=== PATIENT | male | born 1960 | race Caucasian/White ===

== ENCOUNTER 2022-07-25 13:56 | Observation (INO) | payer OTHER, SELFPAY ==
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
[2022-07-25 14:04] VITALS: BP 124/76; PULSE 86; O2SAT 98
[2022-07-25 14:08] VITALS: BMI 30.7
--- NOTE | 2022-07-25 14:09 | ECG_ITS ---
Test Reason : ?SYNCOPE Blood Pressure : / mmHG Vent. Rate : 072 BPM Atrial Rate : 072 BPM P-R Int : 176 ms QRS Dur : 086 ms QT Int : 370 ms P-R-T Axes : 055 069 044 degrees QTc Int : 405 ms Normal sinus rhythm Septal infarct , age undetermined Abnormal ECG When compared with ECG of 01-AUG-2016 20:42, Septal infarct is now Present Referred By: Julius Starks Electronically Signed By:LULU NUNEZ
[2022-07-25 14:11] VITALS: BP 136/73; PULSE 73; RESP 18; TEMP 36.7; O2SAT 97
[2022-07-25 14:38] LABS: MANUAL DIFF FLAG NO
[2022-07-25 14:39] LABS: Basophils Percent Auto 0.4 % (0-2); Eosinophils Absolute Auto 0.2 X10*3/uL (0.0-0.4); Hematocrit 42.8 % (42.0-52.0); Imm Gran Abs Auto 0.01 X10*3/uL (0.00-0.03); Imm Gran Pct Auto 0.1 % (0.0-0.4); Lymphocytes Absolute Auto 1.7 X10*3/uL (1.2-4.9); Lymphocytes Percent Auto 22.3 % (20-40); Mean Corpuscular Hemoglobin 32.1 pg (27.0-33.0); Mean Corpuscular Volume 91.5 fL (80.0-98.0); Mean Platelet Volume 9.4 fL (9.4-12.4); Monocytes Absolute Auto 0.5 X10*3/uL (0.1-1.2); Monocytes Percent Auto 6.9 % (2-11); Neutrophils Absolute Auto 5.2 x10*3/uL (2.0-8.3); Neutrophils Percent Auto 68.3 % (45-73); Platelet Count 278 X10*3/uL (160-400); Red Blood Count 4.68 X10*6/uL (4.60-5.80); Red Cell Distribution Width 13.6 % (11.0-16.0); White Blood Count 7.5 X10*3/uL (4.8-10.8)
--- OUTSIDE RECORDS SUMMARY | 2022-07-25 14:46 | XMS_ITS | Continuity of Care Document ---
:1960 Author Organization [facility] [place] Adult Address [address] [place] [address]- Care Team Providers Name Role Phone Sadnra BOWMAN, Johnnie Dunn Primary Care Physician [place] [facility] [place]21 [facility] [place] Adult [address] [place] [address]- Allergies, Adverse Reactions, Alerts Substance Reaction Severity Status omeprazole1 Active penicillins Active 1Unable to urinate Immunizations Given and Recorded Vaccine Date Status Refusal Reason Influenza Virus Vaccine (oldterm) 10/16/18 Recorded Problem List Condition Effective Dates Status Health Status Informant History of alcohol abuse(Confirmed) Active Encounter for preventive health Active examination(Confirmed) Pyuria(Confirmed) Active Shoulder joint pain(Confirmed) Active Skin cancer(Confirmed) Active Tubular adenoma of colon(Confirmed) Active Vertigo(Confirmed) Active Social History Social History Type Response Smoking Status Former smoker; Tobacco user in household: No; Other: quit 2 years ago; entered on: 01/13/18 Sex
--- OUTSIDE RECORDS SUMMARY | 2022-07-25 14:46 | XMS_ITS | Continuity of Care Document ---
:1960 Author Organization [facility] [place] Adult Address [address] [place] [address]- Care Team Providers Name Role Phone Johnnie Flores MD Primary Care Physician Encounter [facility] [place] Date(s): 01/22/20 - 01/29/20 [facility] [place] Adult [address] [place] [address]- [place] States Attending Physician: Johnnie Flores MD Allergies, Adverse Reactions, Alerts Substance Reaction Severity Status omeprazole1 Active penicillins Active 1Unable to urinate Immunizations Given and Recorded Vaccine Date Status Refusal Reason Influenza Virus Vaccine (oldterm) 10/16/18 Recorded Medications NuLYTELY with Flavor Packs oral powder for reconstitution 240 mL, By Mouth, Every 10 minutes, # 1 each, 0 Refills, Maintenance, 01/25/20 7:36:00 EDT, REC Powder, [id number], test date 05/22/20, 240 mL By Mouth Every 10 minutes, 175, cm, 01/22/20 8:53:00 EDT, Height Start Date: 01/25/20 Status: Ordered Problem List Condition Effective Dates Status Health Status Informant History of alcohol abuse(Confirmed) Active Encounter for preventive health Active examination(Confirmed) Pyuria(Confirmed) Active Shoulder joint pain(Confirmed) Active Skin cancer(Confirmed) Active Tubular adenoma of colon(Confirmed) Active Vertigo(Confirmed) Active Vital Signs Most recent to oldest [Reference Range]: 1 Height 175 cm (01/22/20 8:53 AM) Weight 80.6 kg (01/22/20 8:53 AM) Oxygen Saturation [94-100 %] 99 % (01/22/20 8:53 AM) Pulse Rate [55-90 bpm] 90 bpm (01/22/20 8:53 AM) Body Mass Index [18.5-24.99] 26.32 *H* (01/22/20 8:53 AM) Blood Pressure [90-138/55-84 mm Hg] 130/80 mm Hg (01/22/20 8:53 AM) Temperature [96.8-100.4 DegF] 98.1 DegF (01/22/20 8:53 AM) Mode of Delivery (Oxygen) Room air (01/22/20 8:53 AM) Blood pressure sites Arm, right (01/22/20 8:53 AM) Temperature Route Oral (01/22/20 8:53 AM) Weight Obtained Via Standing scale (01/22/20 8:53 AM) Social History Social History Type Response Smoking Status Former smoker; Tobacco user in household: No; Other: quit 2 years ago; entered on: 01/13/18 Sex
--- OUTSIDE RECORDS SUMMARY | 2022-07-25 14:46 | XMS_ITS | Continuity of Care Document ---
:1960 Author Organization [facility] Adult Address [address] [place] [address]- Care Team Providers Name Role Phone Sandra BOWMAN, Johnnie Dunn Primary Care Physician Encounter [facility] [place] Date(s): 01/23/21 - 02/22/21 [facility] Adult [address] [place] [address]- Attending Physician: Chan Gallagher Admitting Physician: Chan Gallagher Referring Physician: trChan Allergies, Adverse Reactions, Alerts Substance Reaction Severity [...]
--- OUTSIDE RECORDS SUMMARY | 2022-07-25 14:46 | XMS_ITS | Continuity of Care Document ---
:1960 Author Organization [facility] Adult Address [address] [place] [address]- Care Team Providers Name Role Phone Sandra BOWMAN, Johnnie Dunn Primary Care Physician [place] [facility] [place] 10/03/21 [facility] Adult [address] [place] [address]- Attending Physician: Chan Gallagher Admitting Physician: Chan [...]
--- OUTSIDE RECORDS SUMMARY | 2022-07-25 14:46 | XMS_ITS | Continuity of Care Document ---
:1960 Author Organization [facility] Address [address] [place] [address]- Care Team Providers Name Role Phone Johnnie Flores MD Primary Care Physician Encounter [id number] Date(s): 05/21/20 - 05/21/[address] [address]- [facility] Discharge Disposition: A-D/C Home Attending Physician: Wilber Leon MD Admitting Physician: Wilber Leon MD Referring Physician: Wilber Leon MD Allergies, Adverse Reactions, Alerts Substance Reaction Severity Status omeprazole1 Active penicillins Active 1Unable to urinate Immunizations Given and Recorded Vaccine Date Status Refusal Reason Influenza Virus Vaccine (oldterm) 10/16/18 Recorded Medications No Known Medications Problem List Condition Effective Dates Status Health Status Informant History of alcohol abuse(Confirmed) Active Encounter for preventive health Active examination(Confirmed) Pyuria(Confirmed) Active Shoulder joint pain(Confirmed) Active Skin cancer(Confirmed) Active Tubular adenoma of colon(Confirmed) Active Vertigo(Confirmed) Active Vital Signs Most recent to oldest 1 2 3 [Reference Range]: Height 173 cm (05/21/20 8:55 AM) Oxygen Saturation [94-100 %] 99 % 97 % 96 % (05/21/20 10:42 AM) (05/21/20 10:26 AM) (05/21/20 1 0:21 AM) Pulse Rate [55-90 bpm] 72 bpm (05/21/20 8:55 AM) Blood Pressure [90-138/55-84 121/62 mm Hg 126/77 mm Hg 161 /126 mm Hg mm Hg] (05/21/20 10:42 AM) (05/21/20 10:26 AM) *H* (05/21/20 10:21 A M) Respiratory Rate [16-30 23 br/min 15 br/min 13 br/mi n br/min] (05/21/20 10:42 AM) *L* *L* (05/21/20 10:26 AM) (05/21/20 10:2 1 AM) Temperature [96.8-100.4 97.5 DegF 97.6 DegF 97.9 Deg F DegF] (05/21/20 10:42 AM) (05/21/20 10:21 AM) (05/21/20 8 :55 AM) Mode of Delivery (Oxygen) Room air Room air Room a ir (05/21/20 10:42 AM) (05/21/20 10:39 AM) (05/21/20 1 0:26 AM) Blood pressure sites Arm, left (05/21/20 8:55 AM) Temperature Route Temporal Temporal Temporal (05/21/20 10:42 AM) (05/21/20 10:21 AM) (05/21/20 8 :55 AM) Dry Weight 75 kg (05/21/20 8:55 AM) Social History Social History Type Response Smoking Status Former smoker; Tobacco user in household: No; Other: quit 2 years ago; entered on: 01/13/18 Sex
--- OUTSIDE RECORDS SUMMARY | 2022-07-25 14:46 | XMS_ITS | Continuity of Care Document ---
:1960 Author Organization [facility] Adult Address [address] [place] [address]- Care Team Providers Name Role Phone Sandra BOWMAN, Johnnie Dunn Primary Care Physician Encounter [facility] [place] Date(s): 08/31/21 - 09/30/21 [facility] Adult [address] [place] [address]- Allergies, Adverse Reactions, Alerts Substance Reaction Severity [...]
--- OUTSIDE RECORDS SUMMARY | 2022-07-25 14:46 | XMS_ITS | Continuity of Care Document ---
:1960 Author Organization [facility] Adult Address [address] [place] [address]- Care Team Providers Name Role Phone Sandra BOWMAN, Johnnie Dunn Primary Care Physician [place] [facility] [place] Date(s): 11/17/21 - 12/17/21 [facility] Adult [address] [place] [address]- Allergies, Adverse Reactions, Alerts Substance Reaction Severity [...]
--- OUTSIDE RECORDS SUMMARY | 2022-07-25 14:46 | XMS_ITS | Continuity of Care Document ---
:1960 Author Organization [facility] Adult Address [address] [place] [address]- Care Team Providers Name Role Phone Johnnie Flores MD Primary Care Physician En[place] [facility] [place] Date(s): 08/31/21 - 10/03/21 [facility] Adult [address] [place] [address]- Attending Physician: Johnnie Flores MD Allergies, Adverse [...]
--- OUTSIDE RECORDS SUMMARY | 2022-07-25 14:46 | XMS_ITS | Continuity of Care Document ---
:1960 Author Organization [facility] Adult Address [address] [place] [address]- Care Team Providers Name Role Phone Johnnie Flores MD Primary Care Physician Encounter [facility] [place] Date(s): 01/23/21 - 01/30/21 [facility] Adult [address] [place] [address]- Attending Physician: Johnnie Flores MD Allergies, Adverse [...] recent to oldest [Reference Range]: 1 Height 173 cm (01/23/21 9:00 AM) Weight 76 kg (01/23/21 9:00 AM) Oxygen Saturation [94-100 %] 98 % (01/23/21 9:00 AM) Pulse Rate [55-90 bpm] 89 bpm (01/23/21 9:00 AM) Body Mass Index [18.5-24.99] 25.39 *H* (01/23/21 9:00 AM) Blood Pressure [90-138/55-84 mm Hg] 122/80 mm Hg (01/23/21 9:00 AM) Temperature [96.8-100.4 DegF] 98.1 DegF (01/23/21 9:00 AM) Blood pressure sites Arm, right (01/23/21 9:00 AM) Temperature Route Oral (01/23/21 9:00 AM) Weight Obtained Via Standing scale (01/23/21 9:00 AM) Social History Social History Type Response Smoking Status Former smoker; Tobacco user in household: No; Other: quit 2 years ago; entered on: 01/13/18 Sex
--- OUTSIDE RECORDS SUMMARY | 2022-07-25 14:46 | XMS_ITS | Continuity of Care Document ---
:1960 Author Organization [facility] Adult Address [address] [place] [address]- Care Team Providers Name Role Phone Johnnie Flores MD Primary Care Physician Encounter [facility] [place] Date(s): 07/01/22 - 07/08/22 [facility] Adult [address] [place] [address]- Encounter Diagnosis Carpal tunnel syndrome (Discharge Diagnosis) - 07/01/22 Attending Physician: Carmela Herzog Referring Physician: Johnnie Flores MD Allergies, Adverse Reactions, [...] Tubular adenoma of colon(Confirmed) Active Vertigo(Confirmed) Active Diagnosis Diagnosis Type Effective Dates Health Status Clinical In formant Service Carpal tunnel Discharge 07/01/22 syndrome Diagnosis Vital Signs Most recent to oldest [Reference Range]: 1 Height 173 cm (07/01/22 11:19 AM) Weight 74.5 kg (07/01/22 11:19 AM) Oxygen Saturation [94-100 %] 99 % (07/01/22 11:19 AM) Pulse Rate [55-90 bpm] 74 bpm (07/01/22 11:19 AM) Body Mass Index [18.5-24.99] 24.89 (07/01/22 11:19 AM) Blood Pressure [90-138/55-84 mm Hg] 133/83 mm Hg (07/01/22 11:19 AM) Blood pressure sites Arm, right (07/01/22 11:19 AM) Social History Social History Type Response Smoking Status Former smoker; Tobacco user in household: No; Other: quit 2 years ago; entered on: 01/13/18 Sex Care Team PersonnelName: Sandra BOWMAN, Johnnie Dunn Address: [address] [place] [id number]-
[2022-07-25 14:56] LABS: Alanine Aminotransferase 21 U/L (0-40); Albumin Level 4.3 g/dL (3.5-5.0); Alkaline Phosphatase 95 U/L (39-117); Anion Gap 16 (12-20); Aspartate Amino Transferase 25 U/L (5-37); Bilirubin Direct 0.3 mg/dL (0.0-0.5); Bilirubin Total 0.6 mg/dL (0.0-1.0); Blood Urea Nitrogen 22 mg/dL (9-16); Calcium 9.7 mg/dL (8.4-10.2); Carbon Dioxide 27 mmol/L (22-29); Chloride 102 mmol/L (96-108); Creatinine Clr Calc Pharmacy 73.2; Estimated Glomerular Filt Rate > 60; Glucose Random 91 mg/dL (60-115); Potassium 4.2 mmol/L (3.3-5.1); Sodium 141 mmol/L (135-145)
[2022-07-25 14:59] LABS: Troponin-I High Sensitivity 3.5 ng/L (<3.5-35.0)
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
[2022-07-25 16:27] VITALS: PULSE 77; RESP 18; O2SAT 100
--- NOTE | 2022-07-25 16:33 | PHA.MEDREC ---
Pharmacy Consult ? Medication Reconciliation Pharmacy has completed the medication reconciliation. Patient reports using naproxen for sleep.
[2022-07-25 17:12] LABS: D Dimer High Sensitivity 267 NG/ML
[2022-07-25 17:32] LABS: Troponin-I High Sensitivity 4.7 ng/L (<3.5-35.0)
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
--- NOTE | 2022-07-25 18:24 | PC.NURSE ---
report given to alejo in [facility]
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
[2022-07-25 19:47] VITALS: BP 150/93; PULSE 73; RESP 15; TEMP 37.1; O2SAT 98
[2022-07-26] VITALS (9 sets, daily range): BP systolic 111–149; BP diastolic 67–92; PULSE 61–91; RESP 16–18; TEMP 36.3–36.8; O2SAT 91–100
--- NOTE | 2022-07-26 | CA_ITS ---
Acquisition Time: 2022-07-27 08:23:15 Total Exercise Time: 00:09:41 Test Indications: SYNCOPE Medications: SEE CHART Protocol: YUMIKO Max HR: 137 BPM 86% of Pred: 159 BPM Max BP: 152/082 mmHG Max Work Load: 11.2 METS Exercise stress test with exercise 9 min 41 sec of Yumiko protocol, achieving 87% MPHR, without anginal symptoms, with isolated PVCs, with normotensvie response to exercise, without EKG changes meeting criteria for ischemia. Test reviewed with Dr Olosn. Referred By: Charli Olson Overread By: REMBERTO REED
[2022-07-26] MEDS: 0.9 % Sodium Chloride Flush 3 ML SYRINGE IVFLUSH ×3 (02:31→16:57)
[2022-07-26 06:47] LABS: Hematocrit 44.7 % (42.0-52.0); Hemoglobin 15.4 g/dl (14.0-18.0); Mean Corpuscular HGB Conc 34.5 g/dl (31.0-36.0); Mean Corpuscular Hemoglobin 31.6 pg (27.0-33.0); Mean Corpuscular Volume 91.6 fL (80.0-98.0); Mean Platelet Volume 9.7 fL (9.4-12.4); Platelet Count 281 X10*3/uL (160-400); Red Blood Count 4.88 X10*6/uL (4.60-5.80); Red Cell Distribution Width 13.5 % (11.0-16.0); White Blood Count 9.9 X10*3/uL (4.8-10.8)
--- NOTE | 2022-07-26 07:00 | CA_ITS ---
Transthoracic Echocardiogram Patient (Last, First, Middle): Spencer Bernal V Gender: Male Date of : 1960 Age: 61 Procedure Date: 07/26/2022 Procedure Type: Transthoracic Echocardiogram Location: ER Height: 167.64 cm Weight: 86.18 kg BSA: 1.96 m2 Heart Rate: 67 bpm BP: 115 / 74 mmHg Greenkeeper: Referring MD: Cecilio Ernandez MD Electric Sign Wirer: Charli Olson MD Symptoms: syncope Study Quality: Good ECG Rhythm: Sinus Conclusions: - 1. Normal LV systolic function with grade 1 diastolic dysfunction 2. Normal cardiac valvular Doppler 3. Normal RV systolic pressure 4. No pericardial effusion Findings Left Ventricle Normal left ventricular size, thickness, and systolic function. The visually estimated ejection fraction is between 60-65%. Spectral Doppler is indicative of an impaired relaxation filling pattern. E/E prime ratio is <8, consistent with normal filling pressures. Right Ventricle Normal right ventricular cavity size and systolic function. Atria Both atria are normal in size. There is lipomatous hypertrophy of the interatrial septum. There is no evidence of interatrial shunt. Aortic Valve Normal aortic valve structure and function. There is no aortic valve stenosis. There is no aortic valve regurgitation. Mitral Valve Normal mitral valve structure and function. There is trace mitral valve regurgitation. There is no mitral valve stenosis. Pulmonic Valve The pulmonic valve was not well visualized. Tricuspid Valve Likely normal tricuspid valve structure and function. There is trace tricuspid valve regurgitation. The right ventricular systolic pressure is normal. The right ventricular systolic pressure is 14 mmHg. Normal right atrial pressure. There is no evidence of pulmonary hypertension. Great Vessels All visible segments of the aorta are normal in size. The pulmonary artery was not well visualized. Venous The inferior vena cava is normal in size and collapses greater than 50% with inspiration. Pericardium/Pleural There is no evidence of pericardial effusion. Prior Study Comparison No prior study available for comparison. Measurements 2D Linear Measurements IVSd: 1.30 0.6-0.9/0.6-1.0 cm LVIDd: 4.39 3.9-5.3/4.2-5.9 cm LVIDd Index: 2.24 2.4-3.2/2.2-3.1 cm/m2 LVIDs: 2.66 2.0-3.6 cm LVPWd: 1.30 0.7-1.1 cm Ao Root: 3.60 2.1-3.5 cm LA Diam: 3.80 2.7-3.8/3.0-4.0 cm LAIDs Index: 1.94 1.5-2.3 cm/m2 LV Mass: 267.20 67-162/88-224 g LV Mass Index: 136.33 43-95/49-115 g/m2 LVOT Diam: 2.30 3.0+(-)1.3 cm Mitral Valve MV Pk E: 0.58 MV PK A: 0.74 MV Decel Time: 209.00 E/A: 0.80 E'Lateral: 5.55 E'Medial: 6.74 E/E' Med: 8.60 E/E' Lat: 10.50 PHT: 61.00 MVA PHT: 3.61 Decel [place]: 2.78 Aortic Valve AoV Pk Samson: 1.38 AoV Mn Samson: 0.96 AoV VTI: 0.31 AoV Pk Grad: 8.00 Aov Mn Grad: 4.00 YESENIA Cont.VTI: 2.97 LVOT LVOT Pk Samson: 1.10 LVOT Mn Samson: 0.65 LVOT VTI: 0.22 LVOT Pk Grad: 5.00 LVOT Mn Grad: 2.00 LVOT Diam: 2.30 LVOT Area: 4.15 Diastolic Function MV Pk E: 0.58 MV Pk A: 0.74 E/A: 0.80 E'Medial: 6.74 E/E' Med: 8.60 E' Laterial: 5.55 E/E' Lat: 10.50 Right Ventricle TAPSE (mm): 28.00 TVS' Samson: 12.00 Tricuspid Valve TR Pk Samson: 1.66 TR Pk Grad: 11.00 RA Press: 3.00 RVSP: 14.00 Great Vessels Aorta Ao Root-2D: 3.60 2.0-3.7 cm Ao Asc: 3.10 2.1-3.4 cm Pulmonary Valve PV Pk Samson: 1.07 Peak PV Grad: 5.00 Updated in Other Vendor System with Status of Final Charli Olson MD electronically signed on 07/26/2022 12:44:22 PM with status of Final
[2022-07-26 07:21] LABS: Anion Gap 14 (12-20); Blood Urea Nitrogen 20 mg/dL (9-16); Calcium 9.6 mg/dL (8.4-10.2); Carbon Dioxide 24 mmol/L (22-29); Chloride 107 mmol/L (96-108); Creatinine Clr Calc Pharmacy 85.8; Estimated Glomerular Filt Rate > 60; Glucose Fasting 117 mg/dL (60-99); Magnesium 1.9 mg/dL (1.6-2.6); Potassium 4.5 mmol/L (3.3-5.1); Sodium 140 mmol/L (135-145)
[2022-07-26] MEDS: Enoxaparin Sodium 40 MG/0.4 ML SYRINGE SUBCUT (08:29)
[2022-07-26 08:34] LABS: Thyroid Stimulating Hormone 1.12 uIU/mL (0.32-4.0)
--- NOTE | 2022-07-26 10:47 | HO.PM.IMPN ---
Subjective Subjective Date of Service: 07/26/22 Interval History: cc: syncope interval history:no further episodes Cardiovascular Cardiovascular: Reports no additional cardiovascular complaints Respiratory Respiratory: Reports no additional respiratory complaints Physical Exam Vital Signs: Vital Signs: Last Vital Signs Temp 97.6 F 07/26/22 08:18 Pulse 76 07/26/22 08:18 Resp 18 07/26/22 08:18 BP 142/86 H 07/26/22 08:18 Pulse Ox 97 07/26/22 08:18 O2 Del Method 07/26/22 08:18 BMI result Body Mass Index 30.7 General: AO X 3, no acute distress Resp: CTA bilateral, no accessory muscles used CVS: S1,S2,RRR GI: soft, non tender, non distended Neuro: motor grossly intact, alert Psych: appropriate affect, appropriate insight Objective Data Active Medications Enoxaparin Sodium (Enoxaparin Sodium 40 Mg/0.4 Ml Syringe) 40 mg SUBCUT DAILY [facility] Last Admin: 07/26/22 08:29 Dose: 40 mg Documented By: CHUNG Pharmacy Consult (Consult Rx Perform Med Rec) 1 each MISCELLANE ONCE PRN PRN Reason: Consult order Sodium Chloride (0.9 % Sodium Chloride Flush 3 Ml Syringe) 3 ml IVFLUSH QSHIFT [facility] Last Admin: 07/26/22 08:28 Dose: 3 ml Documented By: CHUNG Labs CBC & Chem 7: 07/26/22 06:13 07/26/22 06:13 Labs: Laboratory Results - last 24 hr 07/25/22 07/25/22 07/25/22 14:34 14:34 14:34 MCV 91.5 MCH 32.1 MCHC 35.0 RDW 13.6 Plt Count 278 MPV 9.4 Immature Gran % (Auto) 0.1 Neut % (Auto) 68.3 Lymph % (Auto) 22.3 [place] % (Auto) 6.9 Eos % (Auto) 2.0 Baso % (Auto) 0.4 Lymph # (Auto) 1.7 [place] # (Auto) 0.5 Eos # (Auto) 0.2 Baso # (Auto) 0.0 Abs Immat Gran (auto) 0.01 Absolute Neuts (auto) 5.2 Absolute Nucleated RBC 0.000 Nucleated RBC % (auto) 0.0 D-Dimer High Sensitivty Anion Gap 16 Estim Creat Clear Calc 73.2 Estimated GFR > 60 Random Glucose 91 Fasting Glucose Calcium 9.7 Magnesium Total Bilirubin 0.6 Direct Bilirubin 0.3 AST 25 ALT 21 Alkaline Phosphatase 95 Troponin I High Sens 3.5 Total Protein 7.0 Albumin 4.3 TSH 07/25/22 07/25/22 07/26/22 16:49 16:49 06:13 MCV 91.6 MCH 31.6 MCHC 34.5 RDW 13.5 Plt Count 281 MPV 9.7 Immature Gran % (Auto) Neut % (Auto) Lymph % (Auto) [place] % (Auto) Eos % (Auto) Baso % (Auto) Lymph # (Auto) [place] # (Auto) Eos # (Auto) Baso # (Auto) Abs Immat Gran (auto) Absolute Neuts (auto) Absolute Nucleated RBC 0.000 Nucleated RBC % (auto) 0.0 D-Dimer High Sensitivty 267 Anion Gap Estim Creat Clear Calc Estimated GFR Random Glucose Fasting Glucose Calcium Magnesium Total Bilirubin Direct Bilirubin AST ALT Alkaline Phosphatase Troponin I High Sens 4.7 Total Protein Albumin TSH 07/26/22 06:13 MCV MCH MCHC RDW Plt Count MPV Immature Gran % (Auto) Neut % (Auto) Lymph % (Auto) [place] % (Auto) Eos % (Auto) Baso % (Auto) Lymph # (Auto) [place] # (Auto) Eos # (Auto) Baso # (Auto) Abs Immat Gran (auto) Absolute Neuts (auto) Absolute Nucleated RBC Nucleated RBC % (auto) D-Dimer High Sensitivty Anion Gap 14 Estim Creat Clear Calc 85.8 Estimated GFR > 60 Random Glucose Fasting Glucose 117 H Calcium 9.6 Magnesium 1.9 Total Bilirubin Direct Bilirubin AST ALT Alkaline Phosphatase Troponin I High Sens Total Protein Albumin TSH 1.12 Assessment and Plan (1) Syncope: Status: Acute Plan 61M presented with syncope syncope concerning for cardiac arrhythmia no events on telemetry so far, continue monitoring follow up echo, cardio appreciated, will need stress test, ILD will check orthostatics nicotine dependence smoking cessation dvt prophylaxis - lovenox reason for continued hospitalization:ongoing monitoring and stress test for high risk syncopal event Quality Stroke Does the patient have a stroke diagnosis?: No VTE Prior VTE?: No VTE Risk Level:: Medical - moderate - high VTE Device Contraindication: Treatment Not Indicated VTE Drug Contraindication: N/A - Med Ordered
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
--- NOTE | 2022-07-26 11:30 | PC.NURSE ---
pt seen by Dr. Ernandez and Dr. Patterson this morning. bedside cardiac echo done. pt to have cardiac ultrasound later this afternoon.
[2022-07-26] MEDS: Acetaminophen 325 MG TABLET 650 MG PO ×2 (12:13→21:59)
--- NOTE | 2022-07-26 12:18 | MHC.CM.PN ---
pt lives with s/o had noprevious servceis is indepedent vax x 2 dc plan home no services
[2022-07-26 15:47] LABS: COVID-19 Test Negative (Negative); IDNOW Serial# 16C4AD1C
--- NOTE | 2022-07-26 18:37 | PC.NURSE ---
Assumed patient care at 1500- Patient AAOx3, VSS. Denies pain, headache, blurry vision, chest pain, dizziness. Ambulating in unit independently. All needs met at this time.
--- NOTE | 2022-07-26 20:37 | PC.NURSE ---
Assumed care of patient at 1900, patient is alert and oriented x3. Offers no complaints at this time, vss. Report given to C RN. Awaiting transport at this time.
[2022-07-27 03:56] VITALS: BP 116/72; PULSE 61; RESP 14; TEMP 36.9; O2SAT 98
[2022-07-27 07:17] VITALS: BP 125/79; PULSE 73; RESP 20; TEMP 36.9; O2SAT 98
[2022-07-27 10:33] VITALS: BP 133/82; PULSE 72; RESP 16; O2SAT 96
--- NOTE | 2022-07-27 10:37 | PM.OP ---
Brief Operative Note Date of Service: 07/27/22 Pre-op diagnosis: Syncope Post-op diagnosis: same Procedure: Implantation of loop recorder Implants: After obtaining full informed consent patient was brought to the minor surgery suite. Patient was laid on the operating table in supine position. The precordial area was then prepped and draped in a sterile fashion. Patient was then given 2% lidocaine with epinephrine intradermally and subcutaneously in the 4th intercostal space. A [employer] implantable loop recorder with serial number [id number] was then implanted using Seldinger technique. Was then closed with a Steri-Strip. Sterile pressure dressing was then applied to the area. Measured R-wave at 0.58-0.65 mV Surgeon: Charli Olson MD Anesthesia: local Was an Block Sawyer used for this Procedure?: No Estimated blood loss (mL): 1 Pathology: none sent Condition: stable Disposition: floor
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
--- NOTE | 2022-07-27 12:18 | MHC.CM.PN ---
pt dcd home no skilled servceis ordered by
== END 2022-07-27 11:41 | disposition home or self-care (01) ==
LOC: HO.ED 14:57 → HO.EDOVER 16:31 → HO.IMC 07-26 18:53
PROVIDERS: Internal Medicine Cardiovascular Disease; Physician Assistant Medical; Admitting Provider Internal Medicine; Emergency Provider Emergency Medicine Emergency Medical Services; PCP Family Medicine; Visit Provider Internal Medicine
PROC: (CPT 33285; principal; 2022-07-27 10:00)
DX: R55 Syncope and collapse (principal); M54.2 Cervicalgia; R51.9 Headache, unspecified; F17.210 Nicotine dependence, cigarettes, uncomplicated; Z71.6 Tobacco abuse counseling; Z20.822 Contact with and (suspected) exposure to COVID-19; Z79.899 Other long term (current) drug therapy
CPT/HCPCS: 33285; 36415; 70450; 72125; 80048; 80076; 83735; 84443; 84484; 85025; 85027; 85379; 87635; 93005; 93017; 93306; 96372; 99219; 99285; C1764; J1650

== ENCOUNTER → 2022-11-12 08:25 | Outpatient (BNVA) | payer OTHER, SELFPAY | PROVIDERS: PCP Family Medicine; Visit Provider Surgery | DX: I45.5 Other specified heart block (principal); R55 Syncope and collapse; Z95.818 Presence of other cardiac implants and grafts; Z87.891 Personal history of nicotine dependence | CPT/HCPCS: 99202 ==

== ENCOUNTER 2022-11-18 17:20 | Inpatient (IN) | payer OTHER, SELFPAY ==
[2022-11-18] VITALS (8 sets, daily range): BP systolic 105–143; BP diastolic 67–97; PULSE 65–83; RESP 14–18; TEMP 36.2–36.9; O2SAT 94–98; BMI 26.7; BMI 26.2
--- NOTE | ~2022-11-18 | XR_ITS ---
EXAMINATION: XR CHEST CLINICAL INFORMATION: Pacemaker COMPARISON: Chest x-ray 07/31/2016 TECHNIQUE: Frontal view of the chest was obtained. FINDINGS: There is a left-sided dual-chamber pacer with lead tips projecting over the right atrium and region of the right ventricle. The lead discontinuity/fracture. No pneumothorax or pleural fluid collection. No airspace consolidation. Normal cardiomediastinal silhouette. No evidence of pulmonary edema. No acute osseous injury. XR/XR chest 1V IMPRESSION: Left-sided dual-chamber pacer with lead tips projecting over the right atrium and right ventricle. No pneumothorax.
--- NOTE | ~2022-11-18 | FL_ITS ---
EXAMINATION: XR FLUOROSCOPY WITH IMAGES CLINICAL INFORMATION: Pacemaker placement. COMPARISON: Portable chest radiograph 11/18/2022 TECHNIQUE: Fluoroscopy Supervised By: Dr. Araseli Chamorro. Fluoroscopy Time: 3.2 minutes. Cumulative Dose: 66.02 mGy. Images: 2. FINDINGS: Bipolar pacer leads overlie the cardiopericardial silhouette. Cardiac loop recorder is also seen overlying the left side. FL/FL guidance in OR IMPRESSION: Fluoroscopy for pacemaker placement.
--- NOTE | 2022-11-18 14:01 | HO.ANESPROP2 ---
HPI - Anesthesia Eval Consult details Narrative: 62 M former smoker w/ hx of sinus pauses and syncope p/f PPM placement. [facility] Active Problems Active Problems: All Active Problems (Updated 11/12/22 @ 10:56 by Isaura Muñoz PA-C) Stopped smoking with greater than 20 pack year history (Acute) Sinus pause (Acute ~2021) Status post placement of implantable loop recorder (Acute ~07/2022) Syncope (Acute ~2021) Past Medical History Medical History Carpal tunnel syndrome Colon polyp Family History Family History Sister Heart transplant recipient Father CVA (cerebral vascular accident) Mother COPD (chronic obstructive pulmonary disease) Other Sudden cardiac Family history of problems with anesthesia: No Surgical History Surgical History Status post placement of implantable loop recorder (~07/2022) History of Problems with Anesthesia: No Social History Social History Alcohol intake: former Patient Tobacco Use Status: Never used Tobacco Second Hand Smoke Exposure: No Use of substances other than those prescribed or required for medical reasons: No Are you DNR?: No Advance Directives: No Advance Directives Information Provided: Yes Advance Directives on File: No service: No Meds Allergies Allergy/AdvReac Type Severity Reaction Status Date / Time Penicillins [PCN] Allergy Unknown UNKNOWN Verified 11/12/22 09:15 Home Medications Medication Instructions Recorded Confirmed Last Taken Type No Known Home Meds 09/21/22 11/18/22 Unknown History Exam Exam Date and Time: November 18, 2022 1401 Height,Weight and Vital Signs: Height 5 ft 8 in Weight 176 lb Last Vital Signs Temp 97.6 F 11/18/22 13:11 Pulse 80 11/18/22 13:11 Resp 16 11/18/22 13:11 BP 130/97 H 11/18/22 13:11 Pulse Ox 97 11/18/22 13:11 O2 Del Method 11/18/22 13:11 Airway Mallampati Class: I TM Dist: >3cm Neck ROM: Full Loose/Missing/Broken Teeth: No Assessment and Plan Assessment Anesthesia Assessment: Anesthesia Plan Discussed Final Anesthetic Review Family History of Problems with Anesthesia: No History of Problems with Anesthesia: No NPO: Yes ASA Class: III Final Preanesthetic Review: No Changes in Pt Med Stat, Meds/Allgs Chart Reviewed, Consent Obtained/Reviewed and Anes Risks/Benef Reviewed Patient Risk: Intermediate Procedure Risk: Intermediate Anesthetic Plan Anesthetic Plan: MAC: Disposition: Standard PACU
--- NOTE | 2022-11-18 14:44 | MHC.SHP ---
Pre-Procedural Eval Section A Date of Service: 11/18/22 The patient is an INPATIENT: No The History & Physical has been completed within 30 days and I have reviewed it.: Yes Section B Chief Complaint: Atrioventricular block, complete Allergies: Allergies Allergy/AdvReac Type Severity Reaction Status Date / Time Penicillins [PCN] Allergy Unknown UNKNOWN Verified 11/12/22 09:15 Plan I have reviewed the history and physical and performed a pertinent physical examination on my patient. No changes have occurred unless specified.Plan for dual-chamber permanent pacemaker. Discussed risks, benefits, and alternatives which he understood and agreed to proceed. Time Spent With Patient Time: Total time managing care of this patient today ____ minutes.
[2022-11-18] MEDS: vancomycin HCL 1,500 MG in 0.9 % Sodium Chloride 500 ML 333.33 MG IV (15:20)
--- NOTE | 2022-11-18 16:41 | W.PM.OPN ---
Operative Note Operative Note Date of Service: 11/18/22 Narrative: Preoperative diagnosis: Syncope and symptomatic pauses Postoperative diagnosis: Same Operation: Placement of dual-chamber permanent pacemaker with fluoroscopic guidance and removal of loop recorder Surgeon: Araseli Chamorro MD Specimens: None EBL: 5 cc Operative findings: The pacemaker placed was a Medtronic serial [id number]. The atrial lead was a Medtronic serial [id number]. The ventricular lead was a Medtronic serial [id number]. Parameters in the right atrial lead sensing was 1.4 within impedance of 589 Ohms and a threshold of 0.75 volts at 0.4 milliseconds. In the ventricular lead threshold was 0.5 volts at 0.4 milliseconds with an impedance of 627 Ohms and R-wave of 8.8 mV. Patient tolerated procedure well. Operation in detail: The patient was brought to the operating room, placed supine on the operating room table, anesthesia moderate of ices were placed, and the patient was gently sedated. A time-out was performed confirming the correct patient site and procedure. After injection of local anesthetic, a 3 cm incision was made in the left infraclavicular region and carried down to the pectoralis fascia with electrocautery. The patient was then placed in Trendelenburg and an 18 gauge needle was used to access subclavian vein on the 1st take. And a wire was placed into the right atrium under fluoroscopic guidance. A 2nd 18 gauge needle was then used to access the subclavian vein again on the 1st ache and a wire was placed under fluoroscopic guidance and parked in the right atrium. The patient was then taken out of Trendelenburg and a pocket was formed using blunt and electrocautery dissection. The 1st 6 Canadian sheath was then placed over wire and the wire and dilator were removed. The ventricular lead was then placed through the sheath and parked in the right atrium and the peel-away sheath was removed. After several attempts using a curved stylet we were eventually able to access the right ventricle and the tip of the lead was positioned at the right ventricular apex. The endocardial screw was deployed and the lead was tested with excellent parameters above. This lead was then secured with silk sutures to the pectoralis fascia. The 2nd 6 Canadian sheath was then placed over the 2nd wire and a wire dilator removed. The atrial lead was then placed and parked in the right atrium. AJ stylet was used to position this in the right atrial appendage. The endocardial screws deployed and the lead was tested with excellent parameters above. This lead was also secured with silk sutures to the pectoralis fascia. The pocket was then copiously irrigated with antibiotic solution. The leads were then placed in their appropriate receptacles and the pacemaker was tested again with excellent parameters. The generator and excess lead was then placed into the pocket. The wound was then closed with a deep running 3-0 Vicryl suture followed by running 3-0 Vicryl suture and Dermabond glue in the skin. next, a small incision was made over the loop recorder. With some blunt and sharp dissection was able to grasp the loop recorder and pull it out of its capsule. This wound was then closed with running 4-0 Monocryl and Exofin glue. Patient tolerated the procedure well was brought to the recovery room in stable condition.
[2022-11-18] MEDS: Acetaminophen 325 MG TABLET 975 MG PO (16:54)
--- NOTE | 2022-11-18 17:38 | PHA.MEDREC ---
Pharmacy Consult ? Medication Reconciliation Pharmacy has completed the medication reconciliation. Reviewed med rec done by Brian.
[2022-11-18] MEDS: Heparin Sodium,Porcine 5,000 UNIT/ML VIAL 5000 UNIT SUBCUT (18:26)
[2022-11-19] MEDS: Acetaminophen 325 MG TABLET 975 MG PO ×2 (02:11→11:19)
[2022-11-19 03:11] VITALS: BP 111/68; PULSE 73; RESP 14; TEMP 36.5; O2SAT 95
[2022-11-19] MEDS: Heparin Sodium,Porcine 5,000 UNIT/ML VIAL 5000 UNIT SUBCUT (05:43)
[2022-11-19 07:49] VITALS: BP 126/79; PULSE 71; RESP 14; TEMP 36.8; O2SAT 95
[2022-11-19 11:50] VITALS: BP 123/85; PULSE 78; RESP 14; TEMP 36.7; O2SAT 95
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
--- NOTE | 2022-11-19 13:18 | MHC.CM.PN ---
pt dcd home no skilled servceis ordered by pt is indepdent ,vax and has own ride home
--- NOTE | 2022-11-19 14:11 | HO.POSTANES ---
Post Anesthesia Evaluation Post Anesthesia Evaluation Vital Signs: Vital Signs Temp Pulse Resp BP Pulse Ox O2 Del Method 11/19/22 11:50 98.1 F 78 14 123/85 95 Room Air 11/19/22 07:49 98.3 F 71 14 126/79 95 Room Air 11/19/22 03:11 97.7 F 73 14 111/68 95 Room Air Anesthesia: Monitored Mental Status: Awake Pain Control: Satisfactory Nausea/Vomiting: None Hydration: Adequate Anesthesia-Related Issues: No Anes. Related Issues
== END 2022-11-19 13:21 | disposition home or self-care (01) | DRG 244 ==
LOC: HO.IMC 17:36
PROVIDERS: Absent Provider Physician Assistant; Admitting Provider Physician Assistant; PCP Family Medicine; Visit Provider Surgery
PROC: 0JH806Z Insertion of Pacemaker, Dual Chamber into Abdomen Subcutaneous Tissue and Fascia, Open Approach (ICD-10-PCS; CPT 33208; principal; 2022-11-18 14:30)
DX: I49.5 Sick sinus syndrome (principal); Z88.0 Allergy status to penicillin
CPT/HCPCS: 33208; 33286; 71045; C1785; C1892; C1898; J1643; J2250; J2795; J3010; J3370; J3371

== ENCOUNTER 2022-11-23 12:36 | Outpatient (REF) | payer OTHER, SELFPAY ==
--- NOTE | ~2022-11-23 | XR_ITS ---
EXAMINATION: XR CHEST CLINICAL INFORMATION: Presence of pacemaker COMPARISON: 11/18/2022 TECHNIQUE: Frontal view of the chest was obtained. FINDINGS: Left chest wall pacemaker with leads projecting over the right atrium and right ventricle. Normal symmetric lung volumes. No parenchymal consolidation. No pleural effusion. No pneumothorax. Cardiomediastinal silhouette and pulmonary vascularity are within normal limits. No acute osseous abnormalities. XR/XR chest 1V IMPRESSION: Left chest wall pacemaker with leads projecting over the right atrium and right ventricle.
== END 2022-11-23 12:37 | disposition home or self-care (01) ==
LOC: HO.XRAY 12:36
PROVIDERS: PCP Family Medicine; Referring Provider Family Medicine; Visit Provider Nurse Practitioner Family
DX: Z95.0 Presence of cardiac pacemaker (principal)
CPT/HCPCS: 71045; 93280

== ENCOUNTER 2022-12-02 06:01 | Day surgery (SDC) | payer OTHER, SELFPAY ==
--- NOTE | ~2022-12-02 | FL_ITS ---
EXAMINATION: XR FLUOROSCOPY WITH IMAGES CLINICAL INFORMATION: Pacemaker lead assessment. COMPARISON: Chest radiographs 11/23/2022 TECHNIQUE: Fluoroscopy Supervised By: Dr. Araseli Chamorro. Fluoroscopy Time: 21 seconds. Cumulative Dose: 4.88 mGy. Images: 1. FINDINGS: Single frontal view obtained with respiratory motion artifact. There are pacer leads overlying the mediastinum and cardiac silhouette.
[2022-12-02 06:19] VITALS: BMI 26.7
[2022-12-02] MEDS: Lactated Ringers 1,000 ML 50 ML IVCONT (06:24)
[2022-12-02 06:31] VITALS: BP 138/80; PULSE 77; RESP 18; TEMP 36.7; O2SAT 97
--- NOTE | 2022-12-02 07:11 | P.HPSUR_ITS ---
Pre-Procedural Eval Section A Date of Service: 12/02/22 The patient is an INPATIENT: No The History & Physical has been completed within 30 days and I have reviewed it.: Yes Section B Chief Complaint: Encounter for checking and testing of cardiac pace Allergies: Allergies Allergy/AdvReac Type Severity Reaction Status Date / Time Penicillins [PCN] Allergy Unknown UNKNOWN Verified 12/02/22 06:40 Plan I have reviewed the history and physical and performed a pertinent physical examination on my patient. No changes have occurred unless specifie d.Plan is for lead revision today. Discussed the risks, benefits, and alternatives with the patient which he understood and agreed to proceed. Time Spent With Patient Time: Total time managing care of this patient today ____ minutes.
[2022-12-02] MEDS: vancomycin HCL 1,000 MG in 0.9 % Sodium Chloride 250 ML 270 MG IV (07:22)
--- NOTE | 2022-12-02 07:23 | HO.ANESPROP2 ---
HPI - Anesthesia Eval Consult details Narrative: 62 M for pacemaker lead revision [facility] Active Problems Active Problems: All Active Problems (Updated 11/30/22 @ 15:01 by Isaura Muñoz PA-C) Pacemaker (Acute ~2022) Stopped smoking with greater than 20 pack year history (Acute) Sinus pause (Acute ~2021) Syncope (Acute ~2021) Past Medical History Medical History Carpal tunnel syndrome Colon polyp Functional capacity: independent ambulation Family History Family History Sister Heart transplant recipient Father CVA (cerebral vascular accident) Mother COPD (chronic obstructive pulmonary disease) Other Sudden cardiac Family history of problems with anesthesia: No Surgical History Surgical History History of pacemaker (~10/2022) Status post placement of implantable loop recorder (~07/2022) History of Problems with Anesthesia: No Social History Social History Household Members: Significant Other Housing: House Alcohol intake: former Patient Tobacco Use Status: Former Tobacco user Second Hand Smoke Exposure: No Are you DNR?: No Advance Directives: No Advance Directives Information Provided: Yes Nutrition Risks: No Nutritional Risk service: No Meds Allergies Allergy/AdvReac Type Severity Reaction Status Date / Time Penicillins [PCN] Allergy Unknown UNKNOWN Verified 12/02/22 06:40 Active Medications: Current Medications Lactated Ringer's (Lr) 1,000 mls @ 50 mls/hr IVCONT .[facility] Last Admin: 12/02/22 06:24 Dose: 50 mls/hr Vancomycin HCl 1,000 mg/ (Sodium Chloride) 270 mls @ 270 mls/hr IV POSTOP ONE Stop: 12/02/22 08:09 Last Admin: 12/02/22 07:22 Dose: 270 mls/hr Pharmacy Consult (Consult Rx Vancomycin Dosing) 1 each MISCELLANE DAILY PRN PRN Reason: Consult order Home Medications Medication Instructions Recorded Confirmed Last Taken Type No Known Home Meds 09/21/22 12/02/22 Unknown History Exam Exam Date and Time: December 02, 2022 0723 Height,Weight and Vital Signs: Height 5 ft 8 in Weight 79.832 kg Last Vital Signs Temp 98.1 F 12/02/22 06:31 Pulse 77 12/02/22 06:31 Resp 18 12/02/22 06:31 BP 138/80 12/02/22 06:31 Pulse Ox 97 12/02/22 06:31 O2 Del Method 12/02/22 06:31 Airway Mallampati Class: IV TM Dist: >3cm Neck ROM: Full Loose/Missing/Broken Teeth: Yes (Poor dentition ) Heart: S1,S2 Lungs: b/l breath sounds Assessment and Plan Assessment Anesthesia Assessment: Anesthesia Plan Discussed and Chart Reviewed Final Anesthetic Review Family History of Problems with Anesthesia: No History of Problems with Anesthesia: No NPO: Yes ASA Class: III Final Preanesthetic Review: Meds/Allgs Chart Reviewed, Consent Obtained/Reviewed and Anes Risks/Benef Reviewed Patient Risk: Intermediate Procedure Risk: Intermediate Anesthetic Plan Anesthetic Plan: MAC: Disposition: Standard PACU
--- NOTE | 2022-12-02 07:51 | W.PM.OPN ---
Operative Note Operative Note Date of Service: 12/02/22 Narrative: The patient was brought into the and placed supine on the operating room table and the leads were tested both in unipolar and monopolar. The threshold that was tested as high remotely in the ventricular lead tested in unipolar with a threshold of 0.5 and in bipolar a threshold of 0 0.75. Given these findings, we decided to do some fluoroscopy to ensure the lead was stable in the call was out with adequate slack. Fluoroscopy images were taken and the lead looks in good position with adequate slack and does not seem to be moving independently of the bead of the heart. For this reason, I decided not to make an incision and increase his risk of infection. I will plan on seeing him in the office tomorrow and testing it again.
[2022-12-02 08:00] VITALS: BP 124/79; PULSE 77; RESP 22; TEMP 36.7; O2SAT 96
[2022-12-02 08:15] VITALS: BP 129/89; PULSE 70; RESP 16; O2SAT 97
== END 2022-12-02 08:52 | disposition home or self-care (01) ==
PROVIDERS: PCP Family Medicine; Visit Provider Surgery
PROC: (CPT 33216; principal; 2022-12-02 07:30)
DX: Z45.010 Encounter for checking and testing of cardiac pacemaker pulse generator [battery] (principal); Z53.8 Procedure and treatment not carried out for other reasons; I45.5 Other specified heart block; Z88.0 Allergy status to penicillin; Z87.891 Personal history of nicotine dependence
CPT/HCPCS: 33216; 33235; J2250; J2795; J3010; J3370

== ENCOUNTER → 2022-12-03 09:48 | Outpatient (BNVA) | payer OTHER, SELFPAY | PROVIDERS: PCP Family Medicine; Visit Provider Surgery | DX: Z13.89 Encounter for screening for other disorder (principal) ==

== ENCOUNTER → 2022-12-14 09:12 | Outpatient (BNVA) | payer OTHER, SELFPAY | PROVIDERS: PCP Family Medicine; Visit Provider Internal Medicine Cardiovascular Disease | DX: Z45.018 Encounter for adjustment and management of other part of cardiac pacemaker (principal); R55 Syncope and collapse | CPT/HCPCS: 93280 ==

== ENCOUNTER → 2023-01-03 14:56 | Outpatient (BNVA) | payer OTHER, SELFPAY | PROVIDERS: PCP Family Medicine; Visit Provider Internal Medicine Cardiovascular Disease | DX: Z13.89 Encounter for screening for other disorder (principal) ==

== ENCOUNTER → 2023-04-21 15:00 | Outpatient (BNVA) | payer OTHER, SELFPAY | PROVIDERS: PCP Family Medicine; Referring Provider Family Medicine; Visit Provider Internal Medicine Cardiovascular Disease | DX: I47.1 Supraventricular tachycardia (principal); Z95.0 Presence of cardiac pacemaker | CPT/HCPCS: 93280 ==

== ENCOUNTER → 2023-05-06 08:16 | Outpatient (BNVA) | payer OTHER, SELFPAY | PROVIDERS: PCP Family Medicine; Visit Provider Internal Medicine | DX: M75.41 Impingement syndrome of right shoulder (principal) | CPT/HCPCS: 99203 ==

== ENCOUNTER → 2023-05-10 07:34 | Outpatient (BNVA) | payer OTHER, SELFPAY | PROVIDERS: PCP Family Medicine; Visit Provider Internal Medicine | DX: M75.01 Adhesive capsulitis of right shoulder (principal) | CPT/HCPCS: 99213 ==

== ENCOUNTER → 2023-05-26 07:52 | Outpatient (BNVA) | payer OTHER, SELFPAY | PROVIDERS: Visit Provider Internal Medicine | DX: M75.41 Impingement syndrome of right shoulder (principal) | CPT/HCPCS: 99213 ==

== ENCOUNTER → 2023-06-06 23:59 | Outpatient (BNV) | payer OTHER, SELFPAY ==
--- NOTE | 2023-06-06 11:07 | A.OFFVIS_ITS ---
Intake Intake Visit Reasons: Remote pacer monitoring- Medtronic Allergies Penicillins [PCN] Allergy (Unknown, Verified 12/03/22 09:49) UNKNOWN [facility] Medical History Carpal tunnel syndrome Colon polyp Surgical History History of pacemaker (~10/2022) Status post placement of implantable loop recorder (~07/2022) Family History Sister Heart transplant recipient Father CVA (cerebral vascular accident) Mother COPD (chronic obstructive pulmonary disease) Other Sudden cardiac Social History Household Members: Significant Other Housing: House Alcohol intake: former Patient Tobacco Use Status: Former Tobacco user Second Hand Smoke Exposure: No service: No Office Procedures Cardiac Device Check Cardiac Device Check Details: Remote pacemaker report generated 06/06/2023. Pacemaker function is adequate [id number] Cardiac Device Interrogation, pacemaker Procedure code (CPT) selection complete Coding Level of Care Code Procedure Only Diagnoses CPT Codes Cardiac Device Check - Cardiac Device 12: [id number] Cardiac Device Interrogation, pacemaker ([id number])
== END ==
PROVIDERS: Visit Provider Internal Medicine Cardiovascular Disease
DX: I47.1 Supraventricular tachycardia (principal); Z95.0 Presence of cardiac pacemaker
CPT/HCPCS: 93294

== ENCOUNTER 2023-06-08 16:00 | Outpatient (RCR) | payer OTHER, SELFPAY ==
[2023-05-18 14:00] VITALS: BP 120/67; PULSE 92
--- NOTE | 2023-05-18 16:02 | MHC.PT.EP ---
[facility] [place] Office [place] Office [place] Office [address] [phone] F: [phone] F: [phone] F: [phone] F: [phone] Physical Therapy Plan of Care Date of Evaluation: Date of Surgery: NA Diagnosis: R RTC Impingement Assessment: Spencer is a 62 yo male referred to PT for R RTC Impingement. 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 On PT examination, signs and symptoms suggestive of R shoulder posterior impingement and possible teres major tendinopathy. Impairments include decreased shoulder ROM, impaired R shoulder strength, impaired posture, and TTP to posterior-lateral R shoulder. Functional limitations include inability to reach back R pocket, inability to work on full duty, and R shoulder stiffness. PT to address aforementioned impairments and functional limitations. PT to include STM, postural education, shoulder strength/stretching, hot/cold pack, US, ionto pt education, and HEP. Frequency and Duration: The patient will be seen 2x a week for 5 weeks Short Term Goals: In 3 weeks... 1. Pt will be I with HEP 2. Pt will be able to reach R arm to R back pocket with no more than 2/10 pain Retirement Goals: In 5 weeks... 1. Pt will improve R shoulder strength by 1 MMT point in order to return to full duty at work 2. will have improved R shoulder ROM w/o clicking in order to lift/throw heavy objects at work. Treatment Plan: Modalities to reduce pain, spasms and effusion. Manual therapy to restore motion and function. Therapeutic exercise to improve strength and flexibility. Neuromuscular re-education for posture and balance. Therapeutic activities to return to functional activities of daily living. Electronically signed by: Maricarmen Smart PT DPT Please sign and return to therapist. Thank you for your referral.
--- NOTE | 2023-06-15 14:07 | MHC.PT.DC ---
[facility] [place] Office [place] Office [place] Office [address] Jose Martel [address] [phone] F: [phone] F: [phone] F: [phone] F: [phone] Physical Therapy Discharge Report Diagnosis: R RTC Impingement Date of Surgery: NA Date of Evaluation: 05/18/23 Date of Discharge: 06/15/23 Treatments to Date: 7 Cancellations to Date: No Shows to Date: Discharge Status: Achieved Goals Improved Function Independent with HEP Discharge Summary: Spencer completed 7 PT visits and has made significant improvements. He has achieved all goals set for him and returned to work. He is therefore being d/c from PT. Electronically signed by: Maricarmen Smart, PT DPT Please sign and return to therapist. Thank you for your referral.
== END 2023-06-15 14:07 | disposition home or self-care (01) ==
LOC: HO.PT 16:00
PROVIDERS: Visit Provider Internal Medicine
DX: M25.811 Other specified joint disorders, right shoulder (principal)
CPT/HCPCS: 97110; 97140; 97161; 97530

== ENCOUNTER 2023-06-21 14:57 | Outpatient (AMB) | payer OTHER, SELFPAY ==
--- NOTE | 2023-06-21 15:25 | MHC.OFFVIS ---
Intake Vital Signs 06/21/23 15:26 Height 5 ft 8 in Weight 171 lb 15.369 oz BMI 26.1 BP 120/78 Blood Pressure Location Lt brachial Position Sitting Pulse 97 Intake Visit Reasons: 6 mth f/up Intake Note: 6 month follow-up with Medtronic Tong Hooker Required: No Allergies Penicillins [PCN] Allergy (Unknown, Verified 12/03/22 09:49) UNKNOWN Medication List - Last Reconciled 06/21/23 by Charli Olson MD No Known Home Meds HPI HPI Comments History of Present Illness Details Mazin comes for a premature appointment. He has had no new cardiac symptoms. Denies any prolonged palpitation irregular heartbeat. Denies any skipped heartbeats. Remains active. [facility] Medical History Carpal tunnel syndrome Colon polyp Surgical History History of pacemaker (~10/2022) Status post placement of implantable loop recorder (~07/2022) Family History Sister Heart transplant recipient Father CVA (cerebral vascular accident) Mother COPD (chronic obstructive pulmonary disease) Other Sudden cardiac Social History Household Members: Significant Other Housing: House Alcohol intake: former Patient Tobacco Use Status: Former Tobacco user Second Hand Smoke Exposure: No service: No Review of Systems Const Denies chills, Denies fatigue, Denies fever(s), Denies frequent falls, Denies weakness, Denies weight gain and Denies weight loss ENT Denies dizziness Card Denies chest pain, Denies leg edema, Denies lightheadedness, Denies palpitations, Denies dyspnea, Denies dyspnea on exertion, Denies orthopnea and Denies other (loss of consciousness) Resp Denies cough, Denies dyspnea and Denies dyspnea on exertion GI Denies hematochezia and Denies change in stool character Musc Denies abnormal gait, Denies muscle weakness, Denies numbness, Denies radiating pain into limb and Denies tingling Neuro Denies abnormal gait, Denies dizziness, Denies frequent falls, Denies numbness, Denies tingling and Denies weakness Endo Denies fatigue and Denies palpitations Physical Exam Vital Signs: Last Vital Signs Pulse 97 06/21/23 15:26 BP 120/78 06/21/23 15:26 BMI result Body Mass Index 26.1 Const General: cooperative, healthy appearing, comfortable and no acute distress Orientation/consciousness: patient oriented x3 Neck Neck: Yes normal visual inspection and Yes no JVD Chest Chest palpation & inspection: other (Pacemaker pocket is benign) Resp Effort & Inspection: normal respiratory effort Auscultation: clear to auscultation bilaterally, no crackles, no rales, no rhonchi and no wheezes Cardio Jugular venous distension: no JVD Rate: regular rate Rhythm: regular rhythm Heart sounds: S1 normal heart sound present, S2 normal heart sound present, no gallops, no murmurs and no rubs Peripheral pulses: Peripheral pulses 2+ throughout Neuro General: patient oriented x3 Extrem General: Yes normal to inspection and No no pedal edema Psych Appearance: grossly normal Mental Status: mental status grossly normal Speech and movement: Normal speech and movement present Office Procedures Cardiac Device Check Cardiac Device Check Details: Dual-chamber Medtronic pacemaker in place. Programmed in MVP mode. Pacemaker function is adequate. PVCs noted while monitoring the patient. Atrial pacing thresholds excellent and reprogrammed to enhance battery life. Ventricular pacing thresholds elevated and reprogrammed to enhance battery life. Atrial ventricular sensing is excellent. Pacing leadImpedance is stable. Battery life is excellent [id number] Cardiac Device Check, pacemaker dual lead Procedure code (CPT) selection complete Assessment & Plan Assessment & Plan (1) Pacemaker: Onset Date: ~2022 Comment: (Medtronic DCPP - placed 10/2022) Code(s): Z95.0 - Presence of cardiac pacemaker Plan: cardiac pacemaker in-situ for sinus pauses and syncope. Doing well. No recurrent syncopal episodes. No significant arrhythmias detected. Patient maintains high level of activity. Follow up in the clinic in 1 year's time. Will continue monitor remotely Coding Level of Care Code Est Pt Level 3 (86950) Diagnoses Pacemaker Z95.0 CPT Codes Cardiac Device Check - Cardiac Device 2: [id number]-[id number] Cardiac Device Check, pacemaker dual lead ([id number])
[2023-06-21 15:26] VITALS: BP 120/78; PULSE 97; BMI 26.1
== END 2023-06-21 15:40 | disposition home or self-care (01) ==
PROVIDERS: Visit Provider Internal Medicine Cardiovascular Disease
DX: I45.5 Other specified heart block (principal); Z95.0 Presence of cardiac pacemaker
CPT/HCPCS: 93280; 99213

== ENCOUNTER → 2023-06-21 14:57 | Outpatient (BNVA) | payer OTHER, SELFPAY | PROVIDERS: Visit Provider Internal Medicine Cardiovascular Disease | DX: Z45.010 Encounter for checking and testing of cardiac pacemaker pulse generator [battery] (principal); Z87.891 Personal history of nicotine dependence; Z95.818 Presence of other cardiac implants and grafts | CPT/HCPCS: 93280 ==

== ENCOUNTER → 2023-07-22 12:14 | Outpatient (BNVA) | payer OTHER, SELFPAY | PROVIDERS: Visit Provider Internal Medicine | DX: M24.811 Other specific joint derangements of right shoulder, not elsewhere classified (principal); S46.091A Other injury of muscle(s) and tendon(s) of the rotator cuff of right shoulder, initial encounter; V58.4XXA Person boarding or alighting a pick-up truck or van injured in noncollision transport accident, initial encounter | CPT/HCPCS: 99203 ==

== ENCOUNTER → 2023-07-25 09:51 | Outpatient (BNVA) | payer OTHER, SELFPAY | PROVIDERS: Visit Provider Internal Medicine | DX: M25.511 Pain in right shoulder (principal); Z91.81 History of falling | CPT/HCPCS: 99213 ==

== ENCOUNTER → 2023-08-03 11:06 | Outpatient (BNVA) | payer OTHER, SELFPAY | PROVIDERS: Visit Provider Internal Medicine | DX: M24.811 Other specific joint derangements of right shoulder, not elsewhere classified (principal) | CPT/HCPCS: 99213 ==

== ENCOUNTER → 2023-08-15 11:45 | Outpatient (BNVA) | payer OTHER, SELFPAY | PROVIDERS: Visit Provider Internal Medicine | DX: S40.011D Contusion of right shoulder, subsequent encounter (principal); V58.4XXD Person boarding or alighting a pick-up truck or van injured in noncollision transport accident, subsequent encounter | CPT/HCPCS: 99213 ==

== ENCOUNTER → 2023-09-04 23:59 | Outpatient (BNV) | payer OTHER, SELFPAY ==
--- NOTE | 2023-09-05 12:04 | A.OFFVIS_ITS ---
Intake Intake Visit Reasons: Remote Device Check- Medtronic Allergies Penicillins [PCN] Allergy (Unknown, Verified 12/03/22 09:49) UNKNOWN [facility] Medical History Carpal tunnel syndrome Colon polyp Surgical History History of pacemaker (~10/2022) Status post placement of implantable loop recorder (~07/2022) Family History Sister Heart transplant recipient Father CVA (cerebral vascular accident) Mother COPD (chronic obstructive pulmonary disease) Other Sudden cardiac Social History Household Members: Significant Other Housing: House Alcohol intake: former Patient Tobacco Use Status: Former Tobacco user Second Hand Smoke Exposure: No service: No Office Procedures Cardiac Device Check Cardiac Device Check Details: Remote pacemaker report generated 09/04/2023. Pacemaker function is adequate. Few short episodes of SVT noted [id number] Cardiac Device Interrogation, pacemaker Procedure code (CPT) selection complete Coding Level of Care Code Procedure Only CPT Codes Cardiac Device Check - Cardiac Device 12: [id number] Cardiac Device Interrogation, pacemaker ([id number])
== END ==
PROVIDERS: Visit Provider Internal Medicine Cardiovascular Disease
DX: I47.10 Supraventricular tachycardia, unspecified (principal); Z95.0 Presence of cardiac pacemaker
CPT/HCPCS: 93294

== ENCOUNTER 2023-10-01 09:07 | Outpatient (AMB) | payer OTHER, SELFPAY ==
[2023-10-01 09:11] VITALS: BP 120/70; PULSE 75; TEMP 36.6; O2SAT 100; BMI 26.5
--- NOTE | 2023-10-01 09:11 | AM.OFFWIN_ITS ---
Intake Vital Signs 10/01/23 09:11 Height 5 ft 8 in Weight 174 lb BMI 26.5 BP 120/70 Blood Pressure Location Lt brachial Position Sitting Pulse 75 Pulse Source Pulse Oximeter Temp 98 F Temp Source Oral Pulse Oximetry (%) 100 Oxygen Delivery Method Room Air Intake Visit Reasons: EP, cough (masked) Intake Note: Pt is here today c/o dry cough x1week Patient Tobacco Use Status: Former Tobacco user Allergies Penicillins [PCN] Allergy (Unknown, Verified 10/01/23 09:12) UNKNOWN HPI HPI Comments History of Present Illness Details 62-year-old male that presents for cough . Patient states that he has had a cough for about a week denies fevers chills chest pain or shortness of breath. Did have a sore throat at 1 point which has since resolved. Feels that he he has a little tickle in the back of his throat. 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 [facility] Medical History Carpal tunnel syndrome Colon polyp Surgical History History of pacemaker (~10/2022) Status post placement of implantable loop recorder (~07/2022) Family History Sister Heart transplant recipient Father CVA (cerebral vascular accident) Mother COPD (chronic obstructive pulmonary disease) Other Sudden cardiac Social History Household Members: Significant Other Housing: House Alcohol intake: former Comment: pt refuses alarms Patient Tobacco Use Status: Former Tobacco user Second Hand Smoke Exposure: No service: No Review of Systems Resp Reports cough Physical Exam Vital Signs: Last Vital Signs Temp 98 F 10/01/23 09:11 Pulse 75 10/01/23 09:11 BP 120/70 10/01/23 09:11 Pulse Ox 100 10/01/23 09:11 Oxygen Delivery Method Room Air 10/01/23 09:11 BMI result Body Mass Index 26.5 Const General: cooperative, no acute distress and alert Orientation/consciousness: patient oriented x3 Limitations: no limitations HEENT Head: Yes normal to inspection Ears: hearing grossly normal bilaterally and external ears normal General nose exam: Normal external nose present Eyes General: appearance normal, both eyes and all related structures Neck Neck: Yes normal visual inspection Chest Chest palpation & inspection: normal inspection of the chest Resp Effort & Inspection: normal respiratory effort, able to speak in complete sentences and no audible wheezes Auscultation: clear to auscultation bilaterally Cardio Rate: regular rate Rhythm: regular rhythm GI Inspection: Yes normal to inspection Palpation (GI): Soft to palpation and nontender Skin General skin exam: no rashes or lesions noted Neuro General: patient oriented x3 Psych Appearance: grossly normal Mental Status: mental status grossly normal Speech and movement: Normal speech and movement present Affect: normal affect Attitude: cooperative Thought process: Normal thought process present Thought content: Normal thought content present Assessment & Plan Assessment & Plan (1) Cough: Code(s): R05.9 - Cough, unspecified Qualifiers: Cough type: acute Qualified Code(s): R05.1 - Acute cough Plan: Unclear etiology of cough likely viral in nature verses postnasal drip irritation. Will recommend a trial of cetirizine. Will also prescribe Tessalon Perles. Discharge instructions, follow up and treatment are discussed with patient in my usual fashion. Alternatives in treatment are also discussed. The patient will return for worsening symptoms or as needed. Advised that any labs/imaging ord ered will be followed up on and contact made if further treatment needed. Counseled that patient's condition may require further evaluation and/or treatment. Symptoms of concern for worsening disorder discussed in detail in my customary manner. Patient does verbalize understanding of the plan, there are no apparent barriers to communication. The patient is given the opportunity to ask questions and have them answered to his/her satisfaction Medications: New benzonatate 100 mg PO BID-TID PRN 14 caps 0RF cough 7 days Coding Level of Care Code Est Pt Level 3 (68535) Diagnoses Acute cough R05.1 Cough type: acute
== END 2023-10-01 09:55 | disposition home or self-care (01) ==
PROVIDERS: Visit Provider Physician Assistant
DX: R05.1 Acute cough (principal)
CPT/HCPCS: 99051; 99213

== ENCOUNTER 2023-10-25 11:09 | Outpatient (AMB) | payer OTHER, SELFPAY ==
[2023-10-25 14:38] VITALS: BP 126/70; PULSE 76; TEMP 36.6; O2SAT 97; BMI 26.5
--- NOTE | 2023-10-25 14:38 | MHC.OFFWIV ---
Intake Vital Signs 10/25/23 14:38 Height 5 ft 8 in Weight 174 lb BMI 26.5 BP 126/70 Blood Pressure Location Rt brachial Position Sitting Pulse 76 Pulse Source Pulse Oximeter Temp 97.8 F Temp Source Temporal Artery Scan Pulse Oximetry (%) 97 Oxygen Delivery Method Room Air Intake Visit Reasons: EST/ongoing cough (lobby masked) Intake Note: pt is here for c.o ongoing cough Patient Tobacco Use Status: Former Tobacco user Allergies Penicillins [PCN] Allergy (Unknown, Verified 10/25/23 14:58) UNKNOWN Medication List - Last Reconciled 10/25/23 by Aquilino Vieira MD No Known Home Meds Do you need a note to return to daycare/school/sports/work: Yes HPI EST/ongoing cough (lobby masked) HPI Details 63-year-old male presents to the office for a sick visit. Patient is reporting symptoms of coughing spasms. He was seen earlier in September and given cough medication. Some part of his symptoms have resolved. No weight loss. No shortness of breath. [facility] Medical History Carpal tunnel syndrome Colon polyp Surgical History History of pacemaker (~10/2022) Status post placement of implantable loop recorder (~07/2022) Family History Sister Heart transplant recipient Father CVA (cerebral vascular accident) Mother COPD (chronic obstructive pulmonary disease) Other Sudden cardiac Social History Household Members: Significant Other Housing: House Alcohol intake: former Comment: pt refuses alarms Patient Tobacco Use Status: Former Tobacco user Second Hand Smoke Exposure: No service: No Physical Exam Vital Signs: Last Vital Signs Temp 97.8 F 10/25/23 14:38 Pulse 76 10/25/23 14:38 BP 126/70 10/25/23 14:38 Pulse Ox 97 10/25/23 14:38 Oxygen Delivery Method Room Air 10/25/23 14:38 BMI result Body Mass Index 26.5 Const General: cooperative and healthy appearing Nutritional Appearance: well nourished Orientation/consciousness: patient oriented x3 Limitations: no limitations HEENT Head: Yes normal to inspection Eyes General: appearance normal, both eyes and all related structures Neck Neck: Yes normal visual inspection Chest Chest palpation & inspection: normal palpation of entire chest wall Resp Effort & Inspection: normal respiratory effort Neuro General: patient oriented x3 Assessment & Plan Assessment & Plan (1) Cough: Code(s): R05.9 - Cough, unspecified Qualifiers: Cough type: acute Qualified Code(s): R05.1 - Acute cough Plan: X-ray images were reviewed personally by me. No infiltrate seen. Prednisone and cough medications sent to the pharmacy. Orders: Orders XR chest 2V Today R05.9 - Cough, unspecified Coding Level of Care Code Est Pt Level 4 (38169) Diagnoses Acute cough R05.1 Cough type: acute
== END 2023-10-25 15:18 | disposition home or self-care (01) ==
PROVIDERS: Visit Provider Internal Medicine
DX: R05.1 Acute cough (principal)
CPT/HCPCS: 99214

== ENCOUNTER 2023-10-25 15:01 | Outpatient (REF) | payer OTHER, SELFPAY ==
--- NOTE | ~2023-10-25 | XR_ITS ---
EXAMINATION: XR CHEST 2 VIEW CLINICAL INFORMATION: Cough COMPARISON: 11/23/2022 TECHNIQUE: PA and lateral views of the chest obtained. FINDINGS: Left subclavian pacemaker is unchanged in position. The lungs are clear. There are no pleural effusions. The cardiomediastinal silhouette is normal. XR/XR chest 2V IMPRESSION: No acute cardiopulmonary disease.
== END 2023-10-25 15:02 | disposition home or self-care (01) ==
LOC: HO.HMGCX 15:01
PROVIDERS: PCP Family Medicine; Visit Provider Internal Medicine
DX: R05.9 Cough, unspecified (principal)
CPT/HCPCS: 71046

== ENCOUNTER → 2023-12-03 23:59 | Outpatient (BNV) | payer OTHER, SELFPAY ==
--- NOTE | 2023-12-05 12:33 | MHC.OFFVIS ---
Intake Intake Visit Reasons: Remote Device Check- Medtronic Allergies Penicillins [PCN] Allergy (Unknown, Verified 10/25/23 14:58) UNKNOWN PFSH Medical History Carpal tunnel syndrome Colon polyp Surgical History History of pacemaker (~10/2022) Status post placement of implantable loop recorder (~07/2022) Family History Sister Heart transplant recipient Father CVA (cerebral vascular accident) Mother COPD (chronic obstructive pulmonary disease) Other Sudden cardiac Social History Household Members: Significant Other Housing: House Alcohol intake: former Comment: pt refuses alarms Patient Tobacco Use Status: Former Tobacco user Second Hand Smoke Exposure: No service: No Office Procedures Cardiac Device Check Cardiac Device Check Details: Remote pacemaker report generated 12/03/2023. Pacemaker function is adequate [id number] Cardiac Device Interrogation, pacemaker Procedure code (CPT) selection complete Assessment & Plan Assessment & Plan (1) Pacemaker: Onset Date: ~2022 Comment: (Medtronic DCPP - placed 10/2022) Code(s): Z95.0 - Presence of cardiac pacemaker Plan: See above Coding Level of Care Code Procedure Only Diagnoses Pacemaker Z95.0 CPT Codes Cardiac Device Check - Cardiac Device 12: [id number] Cardiac Device Interrogation, pacemaker ([id number])
== END ==
PROVIDERS: PCP Family Medicine; Visit Provider Internal Medicine Cardiovascular Disease
DX: I47.10 Supraventricular tachycardia, unspecified (principal); Z95.0 Presence of cardiac pacemaker
CPT/HCPCS: 93294

== ENCOUNTER → 2024-03-02 23:59 | Outpatient (BNV) | payer OTHER, SELFPAY ==
--- NOTE | 2024-03-06 15:58 | MHC.OFFVIS ---
Intake Visit Reasons: REmote device check- Medtronic Allergies Penicillins [PCN] Allergy (Unknown, Verified 10/25/23 14:58) UNKNOWN PFSH Medical History Carpal tunnel syndrome Colon polyp Surgical History History of pacemaker (~10/2022) Status post placement of implantable loop recorder (~07/2022) Family History Sister Heart transplant recipient Father CVA (cerebral vascular accident) Mother COPD (chronic obstructive pulmonary disease) Other Sudden cardiac Social History Household Members: Significant Other Housing: House Alcohol intake: former Comment: pt refuses alarms Patient Tobacco Use Status: Former Tobacco user Second Hand Smoke Exposure: No service: No Office Procedures Cardiac Device Check Cardiac Device Check Details: Remote pacemaker report generated 03/02/2024. Pacemaker function is adequate [id number] Cardiac Device Interrogation, pacemaker Procedure code (CPT) selection complete Assessment & Plan Assessment & Plan (1) Pacemaker: Onset Date: ~2022 Comment: (Medtronic DCPP - placed 10/2022) Code(s): Z95.0 - Presence of cardiac pacemaker Category: Medical Plan: See above Coding Level of Care Code Procedure Only Diagnoses Pacemaker Z95.0 CPT Codes Cardiac Device Check - Cardiac Device 12: [id number] Cardiac Device Interrogation, pacemaker ([id number])
== END ==
PROVIDERS: PCP Family Medicine; Visit Provider Internal Medicine Cardiovascular Disease
DX: Z45.018 Encounter for adjustment and management of other part of cardiac pacemaker (principal)
CPT/HCPCS: 93294

== ENCOUNTER → 2024-05-31 23:59 | Outpatient (BNV) | payer OTHER, SELFPAY ==
--- NOTE | 2024-06-03 12:02 | MHC.OFFVIS ---
Intake Visit Reasons: Remote device check= Medtronic Allergies Penicillins [PCN] Allergy (Unknown, Verified 10/25/23 14:58) UNKNOWN PFSH Medical History Carpal tunnel syndrome Colon polyp Surgical History History of pacemaker (~10/2022) Status post placement of implantable loop recorder (~07/2022) Family History Sister Heart transplant recipient Father CVA (cerebral vascular accident) Mother COPD (chronic obstructive pulmonary disease) Other Sudden cardiac Social History Household Members: Significant Other Housing: House Alcohol intake: former Comment: pt refuses alarms Patient Tobacco Use Status: Former Tobacco user Second Hand Smoke Exposure: No service: No Office Procedures Cardiac Device Check Cardiac Device Check Details: Remote pacemaker report generated 05/31/2024. Pacemaker function is adequate [id number] Cardiac Device Interrogation, pacemaker Procedure code (CPT) selection complete Assessment & Plan Assessment & Plan (1) Pacemaker: Onset Date: ~2022 Comment: (Medtronic DCPP - placed 10/2022) Code(s): Z95.0 - Presence of cardiac pacemaker Category: Medical Plan: See above Coding Level of Care Code Procedure Only Diagnoses Pacemaker Z95.0 CPT Codes Cardiac Device Check - Cardiac Device 12: [id number] Cardiac Device Interrogation, pacemaker ([id number])
== END ==
PROVIDERS: PCP Family Medicine; Visit Provider Internal Medicine Cardiovascular Disease
DX: Z45.018 Encounter for adjustment and management of other part of cardiac pacemaker (principal)
CPT/HCPCS: 93294

== ENCOUNTER 2024-06-21 15:01 | Outpatient (AMB) | payer OTHER, SELFPAY ==
--- NOTE | 2024-06-21 15:05 | MHC.OFFVIS ---
Vital Signs 06/21/24 15:06 Height 5 ft 8 in Weight 165 lb 5.547 oz BMI 25.1 BP 122/74 Blood Pressure Location Lt brachial Position Sitting Pulse 96 Intake Visit Reasons: 1 yr w/ pacer ck Intake Note: 1 year follow-up with ekg and Medtronic Payroll Lead Required: No Allergies Penicillins [PCN] Allergy (Unknown, Verified 10/25/23 14:58) UNKNOWN Medication List - Last Reconciled 06/21/24 by Charli Olson MD No Known Home Meds HPI Comments Details: Mazin comes for follow-up. He had been doing well from cardiac perspective. 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 Denies any symptoms of palpitations. No lightheadedness, syncope. No medications currently. Denies any exertional chest pain or shortness of breath. No heart failure symptoms. [facility] Medical History Carpal tunnel syndrome Colon polyp Surgical History History of pacemaker (~10/2022) Status post placement of implantable loop recorder (~07/2022) Family History Sister Heart transplant recipient Father CVA (cerebral vascular accident) Mother COPD (chronic obstructive pulmonary disease) Other Sudden cardiac Social History Household Members: Significant Other Housing: House Alcohol intake: former Comment: pt refuses alarms Patient Tobacco Use Status: Former Tobacco user Second Hand Smoke Exposure: No service: No Review of Systems Const Denies chills, Denies fatigue, Denies fever(s), Denies frequent falls, Denies weakness, Denies weight gain and Denies weight loss ENT Denies dizziness Card Denies chest pain, Denies leg edema, Denies lightheadedness, Denies palpitations, Denies dyspnea, Denies dyspnea on exertion, Denies orthopnea and Denies other (loss of consciousness) Resp Denies cough, Denies dyspnea and Denies dyspnea on exertion GI Denies hematochezia and Denies change in stool character Musc Denies abnormal gait, Denies muscle weakness, Denies numbness, Denies radiating pain into limb and Denies tingling Neuro Denies abnormal gait, Denies dizziness, Denies frequent falls, Denies numbness, Denies tingling and Denies weakness Endo Denies fatigue and Denies palpitations Physical Exam Vital Signs: Last Vital Signs Pulse 96 06/21/24 15:06 BP 122/74 06/21/24 15:06 BMI result Body Mass Index 25.1 Const General: cooperative, healthy appearing, comfortable and no acute distress Orientation/consciousness: patient oriented x3 Neck Neck: Yes normal visual inspection and Yes no JVD Chest Chest palpation & inspection: other (Pacemaker pocket is benign) Resp Effort & Inspection: normal respiratory effort Auscultation: clear to auscultation bilaterally, no crackles, no rales, no rhonchi and no wheezes Cardio Jugular venous distension: no JVD Rate: regular rate Rhythm: regular rhythm Heart sounds: S1 normal heart sound present, S2 normal heart sound present, no gallops, no murmurs and no rubs Peripheral pulses: Peripheral pulses 2+ throughout Neuro General: patient oriented x3 Extrem General: Yes normal to inspection and No no pedal edema Psych Appearance: grossly normal Mental Status: mental status grossly normal Speech and movement: Normal speech and movement present Office Procedures Cardiac Device Check Cardiac Device Check Details: Dual-chamber Medtronic pacemaker in place. Programmed in MVP mode at 60 beats per minute. Minimal atrial pacing at 4.6% time. Multiple high ventricular rate consistent with SVT noted. Atrial pacing thresholds excellent and reprogrammed to enhance battery life. Ventricular pacing thresholds are still elevated, reprogrammed to provide adequate safety. Atrial ventricular pacing lead impedance is stable. Battery life is excellent. [id number] Cardiac Device Check, pacemaker dual lead Procedure code (CPT) selection complete EKG Details: EKG shows normal sinus rhythm normal EKG [id number], Complete Assessment & Plan Assessment & Plan (1) Pacemaker: Onset Date: ~2022 Comment: (Medtronic DCPP - placed 10/2022) Code(s): Z95.0 - Presence of cardiac pacemaker Category: Medical Plan: Cardiac pacemaker in-situ with indication of syncope and pauses. Currently pacemaker is working well. Had any episodes of syncope. Continue monitor remotely every 3 months. Follow up in the clinic in 1 year's time. (2) SVT (supraventricular tachycardia): Code(s): I47.1 - Supraventricular tachycardia Category: Medical Plan: Noted episodes of SVT. Patient has no symptoms related to it. Would avoid any pharmacotherapy. Avoidance of stimulants was discussed advised to report any new symptoms. Vagal maneuvers were discussed. Continue maintain activity level as tolerated. Follow up in the clinic in 1 year's time, sooner p.r.n.. Thank you for allowing me to partake in his care Coding Level of Care Code Est Pt Level 4 (26562) Diagnoses Pacemaker Z95.0 SVT (supraventricular tachycardia) I47.1 CPT Codes Cardiac Device Check - Cardiac Device 2: [id number] Cardiac Device Check, pacemaker dual lead ([id number]) EKG - CPT: 14788-[id number], Complete ([id number])
[2024-06-21 15:06] VITALS: BP 122/74; PULSE 96; BMI 25.1
== END 2024-06-21 15:32 | disposition home or self-care (01) ==
PROVIDERS: PCP Family Medicine; Visit Provider Internal Medicine Cardiovascular Disease
DX: I47.10 Supraventricular tachycardia, unspecified (principal); Z95.0 Presence of cardiac pacemaker
CPT/HCPCS: 93280; 99214

== ENCOUNTER → 2024-06-21 15:01 | Outpatient (BNVA) | payer OTHER, SELFPAY | PROVIDERS: Visit Provider Internal Medicine Cardiovascular Disease | DX: Z45.018 Encounter for adjustment and management of other part of cardiac pacemaker (principal); I47.10 Supraventricular tachycardia, unspecified | CPT/HCPCS: 93280 ==

== ENCOUNTER → 2024-08-30 23:59 | Outpatient (BNV) | payer OTHER, SELFPAY ==
--- NOTE | 2024-08-30 12:55 | MHC.OFFVIS ---
Intake Visit Reasons: Remote Device Check- Medtronic Allergies Penicillins [PCN] Allergy (Unknown, Verified 10/25/23 14:58) UNKNOWN PFSH Medical History Carpal tunnel syndrome Colon polyp Surgical History History of pacemaker (~10/2022) Status post placement of implantable loop recorder (~07/2022) Family History Sister Heart transplant recipient Father CVA (cerebral vascular accident) Mother COPD (chronic obstructive pulmonary disease) Other Sudden cardiac Social History Household Members: Significant Other Housing: House Alcohol intake: former Comment: pt refuses alarms Patient Tobacco Use Status: Former Tobacco user Second Hand Smoke Exposure: No service: No Office Procedures Cardiac Device Check Cardiac Device Check Details: Remote pacemaker report generated 08/30/2024. Pacemaker function is adequate [id number] Cardiac Device Interrogation, pacemaker Procedure code (CPT) selection complete Assessment & Plan Assessment & Plan (1) Pacemaker: Onset Date: ~2022 Comment: (Medtronic DCPP - placed 10/2022) Code(s): Z95.0 - Presence of cardiac pacemaker Category: Medical Plan: See above Coding Level of Care Code Procedure Only Diagnoses Pacemaker Z95.0 CPT Codes Cardiac Device Check - Cardiac Device 12: [id number] Cardiac Device Interrogation, pacemaker ([id number])
== END ==
PROVIDERS: PCP Family Medicine; Visit Provider Internal Medicine Cardiovascular Disease
DX: Z45.018 Encounter for adjustment and management of other part of cardiac pacemaker (principal)
CPT/HCPCS: 93294

== ENCOUNTER → 2024-11-28 23:59 | Outpatient (BNV) | payer OTHER, SELFPAY ==
--- NOTE | 2024-12-03 10:59 | MHC.OFFVIS ---
Intake Visit Reasons: Remote Device Check- Medtronic Allergies Penicillins [PCN] Allergy (Unknown, Verified 10/25/23 14:58) UNKNOWN PFSH Medical History Carpal tunnel syndrome Colon polyp Surgical History History of pacemaker (~10/2022) Status post placement of implantable loop recorder (~07/2022) Family History Sister Heart transplant recipient Father CVA (cerebral vascular accident) Mother COPD (chronic obstructive pulmonary disease) Other Sudden cardiac Social History Household Members: Significant Other Housing: House Alcohol intake: former Comment: pt refuses alarms Patient Tobacco Use Status: Former Tobacco user Second Hand Smoke Exposure: No service: No Office Procedures Cardiac Device Check Cardiac Device Check Details: Remote pacemaker report generated 11/28/2024. Pacemaker function is adequate [id number] Cardiac Device Interrogation, pacemaker Procedure code (CPT) selection complete Assessment & Plan Assessment & Plan (1) Pacemaker: Onset Date: ~2022 Comment: (Medtronic DCPP - placed 10/2022) Code(s): Z95.0 - Presence of cardiac pacemaker Category: Medical Plan: See above Coding Level of Care Code Procedure Only Diagnoses Pacemaker Z95.0 CPT Codes Cardiac Device Check - Cardiac Device 12: [id number] Cardiac Device Interrogation, pacemaker ([id number])
== END ==
PROVIDERS: PCP Family Medicine; Visit Provider Internal Medicine Cardiovascular Disease
DX: Z45.018 Encounter for adjustment and management of other part of cardiac pacemaker (principal)
CPT/HCPCS: 93294

== ENCOUNTER → 2025-02-26 23:59 | Outpatient (BNV) | payer OTHER, SELFPAY ==
--- NOTE | 2025-03-04 16:39 | MHC.OFFVIS ---
Intake Visit Reasons: Remote Device Check- Medtronic Allergies Penicillins [PCN] Allergy (Unknown, Verified 10/25/23 14:58) UNKNOWN PFSH Medical History Carpal tunnel syndrome Colon polyp Surgical History History of pacemaker (~10/2022) Status post placement of implantable loop recorder (~07/2022) Family History Sister Heart transplant recipient Father CVA (cerebral vascular accident) Mother COPD (chronic obstructive pulmonary disease) Other Sudden cardiac Social History Household Members: Significant Other Housing: House Alcohol intake: former Comment: pt refuses alarms Patient Tobacco Use Status: Former Tobacco user Second Hand Smoke Exposure: No service: No Office Procedures Cardiac Device Check Cardiac Device Check Details: Remote pacemaker report generated 02/26/2025. Pacemaker function is adequate [id number] Cardiac Device Interrogation, pacemaker Procedure code (CPT) selection complete Assessment & Plan Assessment & Plan (1) Pacemaker: Onset Date: ~2022 Comment: (Medtronic DCPP - placed 10/2022) Code(s): Z95.0 - Presence of cardiac pacemaker Category: Medical Plan: See above Coding Level of Care Code Procedure Only Diagnoses Pacemaker Z95.0 CPT Codes Cardiac Device Check - Cardiac Device 12: [id number] Cardiac Device Interrogation, pacemaker ([id number])
== END ==
PROVIDERS: PCP Family Medicine; Visit Provider Internal Medicine Cardiovascular Disease
DX: Z45.018 Encounter for adjustment and management of other part of cardiac pacemaker (principal)
CPT/HCPCS: 93294

== ENCOUNTER → 2025-05-28 23:59 | Outpatient (BNV) | payer OTHER, SELFPAY ==
--- NOTE | 2025-06-04 12:25 | MHC.OFFVIS ---
Intake Visit Reasons: Remote Device Check- Medtronic Allergies Penicillins (PCN) Allergy (Unknown, Verified 10/25/23 14:58) UNKNOWN PFSH Medical History Carpal tunnel syndrome Colon polyp Surgical History History of pacemaker (~10/2022) Status post placement of implantable loop recorder (~07/2022) Family History Sister Heart transplant recipient Father CVA (cerebral vascular accident) Mother COPD (chronic obstructive pulmonary disease) Other Sudden cardiac Social History Household Members: Significant Other Housing: House Alcohol intake: former Comment: pt refuses alarms Patient Tobacco Use Status: Former Tobacco user Second Hand Smoke Exposure: No service: No Office Procedures Cardiac Device Check Cardiac Device Check Details: Remote pacemaker report generated 05/28/2025. Pacemaker function is adequate [id number] Cardiac Device Interrogation, pacemaker Procedure code (CPT) selection complete Assessment & Plan Assessment & Plan (1) Pacemaker: Onset Date: ~2022 Comment: (Medtronic DCPP - placed 10/2022) Code(s): Z95.0 - Presence of cardiac pacemaker Category: Medical Plan: See above Coding Level of Care Code Procedure Only Diagnoses Pacemaker Z95.0 CPT Codes Cardiac Device Check - Cardiac Device 12: [id number] Cardiac Device Interrogation, pacemaker ([id number])
== END ==
PROVIDERS: PCP Family Medicine; Visit Provider Internal Medicine Cardiovascular Disease
DX: Z45.018 Encounter for adjustment and management of other part of cardiac pacemaker (principal)
CPT/HCPCS: 93294

== ENCOUNTER 2025-06-27 14:40 | Outpatient (AMB) | payer OTHER, SELFPAY ==
[2025-06-27 14:54] VITALS: BP 120/76; PULSE 85; BMI 25.8
--- NOTE | 2025-06-27 14:54 | MHC.OFFVIS ---
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 He has no cardiovascular symptoms. 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 He said he has no symptoms exertional chest pain or shortness of breath. He has no prolonged palpitation irregular heartbeat. No lightheadedness, syncope. [facility] Medical History Carpal tunnel syndrome Colon polyp Surgical History History of pacemaker (~10/2022) Status post placement of implantable loop recorder (~07/2022) Family History Sister Heart transplant recipient Father CVA (cerebral vascular accident) Mother COPD (chronic obstructive pulmonary disease) Other Sudden cardiac Social History Household Members: Significant Other Housing: House Alcohol intake: former Comment: pt refuses alarms Patient Tobacco Use Status: Former Tobacco user Second Hand Smoke Exposure: No service: No Review of Systems Const Denies chills, Denies fatigue, Denies fever(s), Denies frequent falls, Denies weakness, Denies weight gain and Denies weight loss ENT Denies dizziness Card Denies chest pain, Denies leg edema, Denies lightheadedness, Denies palpitations, Denies dyspnea, Denies dyspnea on exertion, Denies orthopnea and Denies other (loss of consciousness) Resp Denies cough, Denies dyspnea and Denies dyspnea on exertion GI Denies hematochezia and Denies change in stool character Musc Denies abnormal gait, Denies muscle weakness, Denies numbness, Denies radiating pain into limb and Denies tingling Neuro Denies abnormal gait, Denies dizziness, Denies frequent falls, Denies numbness, Denies tingling and Denies weakness Endo Denies fatigue and Denies palpitations Physical Exam Vital Signs: Last Vital Signs Pulse 85 06/27/25 14:54 BP 120/76 06/27/25 14:54 BMI result Body Mass Index 25.8 Const General: cooperative, healthy appearing, comfortable and no acute distress Orientation/consciousness: patient oriented x3 Neck Neck: Yes normal visual inspection and Yes no JVD Chest Chest palpation & inspection: other (Pacemaker pocket is benign) Resp Effort & Inspection: normal respiratory effort Auscultation: clear to auscultation bilaterally, no crackles, no rales, no rhonchi and no wheezes Cardio Jugular venous distension: no JVD Rate: regular rate Rhythm: regular rhythm Heart sounds: S1 normal heart sound present, S2 normal heart sound present, no gallops, no murmurs and no rubs Peripheral pulses: Peripheral pulses 2+ throughout Neuro General: patient oriented x3 Extrem General: Yes normal to inspection and No no pedal edema Psych Appearance: grossly normal Mental Status: mental status grossly normal Speech and movement: Normal speech and movement present Office Procedures Cardiac Device Check Cardiac Device Check Details: Dual-chamber Medtronic pacemaker in place. Programmed in DDD at 60 beats per minute. Minimal atrial pacing noted. Few episodes of fast heart rate noted consistent with SVT. Atrial and ventricular sensing were adequate. Atrial pacing thresholds adequate and reprogrammed to enhance battery life. Ventricular pacing thresholds the still high and reprogrammed to provide adequate safety. Pacing lead impedance is stable. Battery life is excellent [id number] Cardiac Device Check, pacemaker dual lead Procedure code (CPT) selection complete EKG Details: EKG shows normal sinus rhythm with normal EKG [id number], Complete Assessment & Plan Assessment & Plan (1) Pacemaker: Onset Date: ~2022 Comment: (Medtronic DCPP - placed 10/2022) Code(s): Z95.0 - Presence of cardiac pacemaker Category: Medical Plan: Cardiac pacemaker in-situ place him for syncope and sinus pauses noted on monitoring. Since then he has had no recurrent syncopal episodes. Minimal use of the pacemaker. Pacemaker is working well. Will follow remotely every 3 months. Follow up in the clinic in 1 year's time. (2) SVT (supraventricular tachycardia): Code(s): I47.1 - Supraventricular tachycardia Category: Medical Plan: Brief episodes of SVT without any obvious symptoms to the patient. At this point time continue to monitor by pacer telemetry. No pharmacotherapy is indicated. Avoidance of stimulants was discussed. Will follow up in the clinic in 1 year's time, sooner PRN. Thank you for allowing me to partake in his care Coding Level of Care Code Est Pt Level 4 (44510) Complex EM visit Add On G2211 Diagnoses Pacemaker Z95.0 SVT (supraventricular tachycardia) I47.1 CPT Codes Cardiac Device Check - Cardiac Device 2: [id number] Cardiac Device Check, pacemaker dual lead ([id number]) EKG - CPT: 66080-Jcfqbrfvousffytbq, Complete ([id number])
== END 2025-06-27 15:13 | disposition home or self-care (01) ==
PROVIDERS: PCP Family Medicine; Visit Provider Internal Medicine Cardiovascular Disease
DX: I47.10 Supraventricular tachycardia, unspecified (principal); Z95.0 Presence of cardiac pacemaker
CPT/HCPCS: 93010; 93280; 99214

== ENCOUNTER → 2025-06-27 14:40 | Outpatient (BNVA) | payer OTHER, SELFPAY | PROVIDERS: Visit Provider Internal Medicine Cardiovascular Disease | DX: I47.10 Supraventricular tachycardia, unspecified (principal); Z95.0 Presence of cardiac pacemaker | CPT/HCPCS: 93005; 93280 ==

== ENCOUNTER → 2025-08-26 23:59 | Outpatient (BNV) | payer OTHER, SELFPAY ==
--- NOTE | 2025-08-28 15:16 | MHC.OFFVIS ---
Intake Visit Reasons: Remote Device Check- Medtronic Allergies Penicillins (PCN) Allergy (Unknown, Verified 10/25/23 14:58) UNKNOWN COUNTS INCLUDE 234 BEDS AT THE [facility] Medical History Carpal tunnel syndrome Colon polyp Surgical History History of pacemaker (~10/2022) Status post placement of implantable loop recorder (~07/2022) Family History Sister Heart transplant recipient Father CVA (cerebral vascular accident) Mother COPD (chronic obstructive pulmonary disease) Other Sudden cardiac Social History Household Members: Significant Other Housing: House Alcohol intake: former Comment: pt refuses alarms Patient Tobacco Use Status: Former Tobacco user Second Hand Smoke Exposure: No service: No Office Procedures Cardiac Device Check Cardiac Device Check Details: Remote pacemaker report generated 08/26/2025. Pacemaker function is adequate [id number] Cardiac Device Interrogation, pacemaker Procedure code (CPT) selection complete Assessment & Plan Assessment & Plan (1) Pacemaker: Onset Date: ~2022 Comment: (Medtronic DCPP - placed 10/2022) Code(s): Z95.0 - Presence of cardiac pacemaker Category: Medical Plan: See above Coding Level of Care Code Procedure Only Diagnoses Pacemaker Z95.0 CPT Codes Cardiac Device Check - Cardiac Device 12: [id number] Cardiac Device Interrogation, pacemaker ([id number])
== END ==
PROVIDERS: PCP Family Medicine; Visit Provider Internal Medicine Cardiovascular Disease
DX: Z45.018 Encounter for adjustment and management of other part of cardiac pacemaker (principal)
CPT/HCPCS: 93294